=== PATIENT | female | born 1980 | race Caucasian/White ===

== ENCOUNTER 2017-06-24 15:03 | Emergency (ER) | payer SELFPAY ==
[~2017-06-24] VITALS: Ht 157.5 cm; Wt 48.9 kg
[2017-06-24] MEDS ORDERED: DEXAMETHASONE 4 MG TABLET PO ONE (16:00)
[2017-06-24] MEDS ORDERED: DEXAMETHASONE 4 MG TABLET ONE (16:08)
[2017-06-24 16:46] VITALS: BP 120/82
== END 2017-06-24 16:52 | disposition home or self-care (01) ==
LOC: ED 16:38
DX: J03.00 Acute streptococcal tonsillitis, unspecified (principal); J45.909 Unspecified asthma, uncomplicated
CPT/HCPCS: 87880; 99283

== ENCOUNTER 2019-04-02 14:03 | Emergency (ER) | payer SELFPAY ==
[~2019-04-02] VITALS: Ht 157.5 cm; Wt 50.5 kg
[2019-04-02 14:07] VITALS: BP 133/80
[2019-04-02] MEDS ORDERED: LIDOCAINE-MPF 1%, 5ML ONE (14:24)
[2019-04-02] MEDS ORDERED: LIDOCAINE-MPF 1%, 5ML INFIL ONE (14:30)
== END 2019-04-02 14:53 | disposition home or self-care (01) ==
LOC: ED 14:45
DX: N61.1 Abscess of the breast and nipple (principal)
CPT/HCPCS: 10060; 99283

== ENCOUNTER 2019-04-04 14:41 | Emergency (ER) | payer SELFPAY ==
[~2019-04-04] VITALS: Ht 157.5 cm; Wt 53.0 kg
[2019-04-04 14:42] VITALS: BP 137/80
--- NOTE | 2019-04-04 15:30 | NUR ---
PT AMBULATORY TO RME WITH STEADY GAIT FROM [facility]. NAD NOTED. RESP REGULAR AND UNLABORED. I&D SITE "IMPROVING PER PT, JUST HERE FOR RECHECK LIKE THEY SAID TO." [place] AT BEDSIDE FOR EVALUATION, AWAITING ORDERS. CALL LIGHT IN REACH. FALL PRECAUTIONS IN PLACE. A&OX4.
== END 2019-04-04 16:00 | disposition home or self-care (01) ==
LOC: ED 15:54
DX: N61.1 Abscess of the breast and nipple (principal)
CPT/HCPCS: 99281

== ENCOUNTER 2019-11-29 10:15 | Emergency (ER) | payer SELFPAY ==
[~2019-11-29] VITALS: Ht 157.5 cm; Wt 45.5 kg
[2019-11-29 10:21] VITALS: BP 128/94
[2019-11-29] MEDS ORDERED: LORazepam 2 MG/ML, 1ML ONE (10:50)
[2019-11-29] MEDS ORDERED: LORazepam 2 MG/ML, 1ML IVPush PRN (11:00)
[2019-11-29 11:14] LABS: MEAN CORPUSCULAR HEMOGLOBIN 29.8 pg (27.0-34.8); MEAN CORPUSCULAR HGB CONC 33.9 g/dL (32.4-35.8); MEAN PLATELET VOLUME 7.9 fL (7.4-10.4); PLATELET COUNT 341 x10^3/uL (130-400); RED BLOOD COUNT 5.28 x10^6/uL (3.82-5.3)
[2019-11-29 11:24] LABS: ALANINE AMINOTRANSFERASE 23 U/L (12-78); ANION GAP 9 mmol/L (5-15); CALCIUM 8.9 mg/dL (8.5-10.1); CHLORIDE 104 mmol/L (98-107)
[2019-11-29 11:26] LABS: ALKALINE PHOSPHATASE 96 U/L (45-117); BILIRUBIN,TOTAL 1.1 mg/dL (0.2-1.0); TOTAL PROTEIN 8.9 g/dL (6.4-8.2)
[2019-11-29 11:57] LABS: MD YES
[2019-11-29 11:58] LABS: BAND#(MANUAL) 0.28 x10^3/uL; BANDS%(MANUAL) 2 % (0-7); EOS#(MANUAL) 0.28 x10^3/uL (0.0-0.4); EOS% (MANUAL) 2 % (1-7); LYMPH#(MANUAL) 2.27 x10^3/uL (1-3.4); LYMPHS% (MANUAL) 16 % (22-44); MONOS#(MANUAL) 0.85 x10^3/uL (0.3-2.7); MONOS% (MANUAL) 6 % (2-9); SEG#(MANUAL) 10.51 x10^3/uL (1.8-6.8); SEGS% (MANUAL) 74 % (42-75)
[2019-11-29 11:59] LABS: <PLATELET ESTIMATE> ADEQUATE; <PLT MORPHOLOGY> NORMAL PLT MORPH; <RBC MORPHOLOGY> NORMAL
[2019-11-29] MEDS ORDERED: THIAMINE 100 MG in SODIUM CHLORIDE 0.9% 50 ML IVPB ONE (12:00)
[2019-11-29] MEDS ORDERED: SODIUM CHLORIDE 0.9% 1,000ML IVBOLUS ONE (12:00)
[2019-11-29] MEDS ORDERED: SODIUM CHLORIDE FLUSH 10ML SYR IVF ONE (12:00)
== END 2019-11-29 13:03 | disposition home or self-care (01) ==
LOC: ED 10:58
DX: S22.41XD Multiple fractures of ribs, right side, subsequent encounter for fracture with routine healing (principal); D72.829 Elevated white blood cell count, unspecified; J04.0 Acute laryngitis; R07.89 Other chest pain; X58.XXXD Exposure to other specified factors, subsequent encounter
CPT/HCPCS: 36415; 71046; 80053; 80307; 85025; 96365; 96375; 99284; J2060; J3411; J7030